=== PATIENT | male | born 1945 | race Caucasian/White ===

== ENCOUNTER 2016-06-29 07:24 | Emergency (ER) | payer OTHER, MEDICARE ==
[2016-06-29] MEDS ORDERED: NORCO, ANEXSIA 5/325MG TABLET (HYDROcodone/ACETAMINOPHEN) As Ordered ONE (07:52)
--- NOTE | 2016-06-29 08:26 | REP ---
Clinical: Pain. Trauma. Technique: Internal rotation, external rotation, and Y view of the right shoulder. Findings: Mild arthritic degenerative changes include spurring/osteophyte formation at the acromioclavicular joint as well as subtle blunting to the glenoid rim. There is no evidence for acute fracture or dislocation. Subacromial space is normal. No periarticular calcifications are identified. Impression: Mild arthritic degenerative changes. Signed by Tab Perdomo MD 06/29/2016 08:17 A
--- NOTE | 2016-06-29 08:33 | EDDOCDS ---
Nurse's Notes [facility] Name: Alli Ferrara Age: 71 yrs Sex: Male : 1945 Arrival Date: 06/29/2016 Time: 07:24 Bed I4 / M4 Private MD: Kalin Rios Diagnosis: Strain of muscle(s) and tendon(s) of the rotator cuff of right shoulder Presentation: 06/29 07:30 Presenting complaint: Patient states: Injured right shoulder lifting yesterday at work. mlb1 Adult Sepsis Screening: The patient does not have new or worsening altered mentation. Patient's respiratory rate is less than 22. Systolic blood pressure is greater than 100. Patient has a qSOFA score of 0- Negative Sepsis Screen. Suicide/Homicide risk assessment- the patient denies having any suicidal and/or homicidal ideations and does not present with any other emotional, behavioral or mental health complaints. 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 Transition of care: patient was not received from another setting of care. 07:30 Acuity: ROSENDO Level 4 mlb1 07:30 Method Of Arrival: Walkin/Carried/Asstd mlb1 Triage Assessment: 07:34 General: Appears uncomfortable, Behavior is appropriate for age, cooperative. Pain: mlb1 Location: right shoulder Pain currently is 11 out of 10 on a pain scale. Musculoskeletal: Range of motion limited in right shoulder. Historical: - Allergies: no known allergies; - Home Meds: 1. atorvastatin 40 mg oral tab 1 tab once daily 2. carvedilol 6.25 mg oral tab 1 tab every 12 hours 3. aspirin 81 mg Oral tab 1 tab once daily - PMHx: Myocardial infarction; High Cholesterol; - PSHx: back surgery; Stents, Coronary; - Social history: Smoking status: Patient uses tobacco products, light tobacco smoker. No barriers to communication noted, The patient speaks fluent Nauruan, Speaks appropriately for age. - Family history: Not pertinent. - : The pt / caregiver states he / she is not on anticoagulants. Home medication list is obtained from the patient. - Exposure Risk Screening:: None identified. Screenin:38 Screening information is obtained from the patient. Fall risk: No risks identified. jmk Assistance ADL's: requires no assistance with activities of daily living. Abuse/DV Screen: The patient / caregiver reports he/she is: not in a situation that causes fear, pain or injury. Nutritional screening: No deficits noted. Advance Directives: Currently, there is. home support is adequate. Assessment: 07:38 General: Appears in no apparent distress, pain with palpation and movement to right [facility] shoulder. painful ROM. pulse intact.. Pain: Location: right trapezius and right scapular area. 08:30 General: Appears arm sling applied with relief. VESSEL BUILDER remains less than 2 sec.. [facility] Vital Signs: 07:34 BP 166 / 104; Pulse 82; Resp 16; Temp 97.2(TE); Pulse Ox 98% on R/A; Weight 61.23 kg mlb1 (R); Height 5 ft. 11 in. (180.34 cm) (R); Pain 10/10; 08:30 BP 155 / 87; Pulse 82; Resp 16; Temp 98.3; jmk 07:34 Body Mass Index 18.83 (61.23 kg, 180.34 cm) [facility] Vitals: 07:34 Log In Time: June 29, 2016 at 07:24. [facility] ED Course: 07:26 Patient visited by Alli Monge Reg. pm4 07:26 Kalin Rios is Private Physician. pm4 07:26 Patient moved to Waiting pm4 07:30 Patient visited by Marcelo Mejia, ROSA. mlb1 07:31 Triage Initiated mlb1 07:35 Patient visited by Marcelo Mejia, ROSA. mlb1 07:35 Patient moved to I4 / M4 mlb1 07:38 The patient / caregiver is instructed regarding the plan of care and ED course. jmk 07:41 Jamie Perez PA-C is PHCP. cc10 07:41 Brian Stephens MD is Attending Physician. cc10 07:41 Patient visited by Jamie Perez PA-C. cc10 07:41 Patient visited by Jamie Perez PA-C. cc10 08:23 [facility] is Referral Physician. cc10 08:32 No IV's were initiated during this patient's visit. No procedures done that require [facility] assistance. Administered Medications: 07:54 Drug: HYDROcodone-acetaminophen 1 tabs [hydrocodone 5 mg-acetaminophen 325 mg tablet (1 jmk tabs)] Route: PO; 07:55 Follow up: Response: Confirmed pt not driving. k Order Results: There are currently no results for this order. Outcome: 08:23 Discharge ordered by Provider. cc10 08:31 Discharge Assessment: Patient awake, alert and oriented x 3. No cognitive and/or jmk functional deficits noted. Patient verbalized understanding of disposition instructions. patient administered narcotics - no. The following High Risk Discharge criteria are identified: None. Discharged to home ambulatory. Condition: good. Discharge instructions given to patient, Instructed on discharge instructions, follow up and referral plans. medication usage, Demonstrated understanding of instructions, medications, Pt was receptive of discharge instructions/ teaching. No special radiology studies were completed. Property :Personal belongings accompany Pt. 08:32 Patient left the ED. [facility] Signatures: Hermilo MaryRN RN Marcelo Katz RN RN mlJamie Newman, PA-C PA-C cc10 Alli Monge, Reg Reg pm4 AMELIE
--- NOTE | 2016-06-29 08:33 | EDDOCDS ---
Physician Documentation [facility] Name: Alli Ferrara Age: 71 yrs Sex: Male : 1945 Arrival Date: 06/29/2016 Time: 07:24 Bed I4 / M4 Private MD: Kalin Rios Disposition: 06/29/16 08:23 Discharged to Home/Self Care. Impression: Strain of muscle(s) and tendon(s) of the rotator cuff of right shoulder. - Condition is Stable. - Discharge Instructions: Rotator Cuff Injury. - Prescriptions for Hydrocodone- Acetaminophen 5-325 mg Oral Tablet - take 1 tablet by ORAL route every 6 hours As needed MDD: 4 tabs; 15 tablet. - Medication Reconciliation, Work Release Form - 3 day form. - Follow up: Emergency Department; When: As needed. Follow up: [facility]; When: Call to arrange an appointment; Reason: Wound/Symptom Recheck, Recheck today's complaints, Worsening of conditions, Continuance of care. - Problem is new. - Symptoms have improved. Historical: - Allergies: no known allergies; - Home Meds: 1. atorvastatin 40 mg oral tab 1 tab once daily 2. carvedilol 6.25 mg oral tab 1 tab every 12 hours 3. aspirin 81 mg Oral tab 1 tab once daily - PMHx: Myocardial infarction; High Cholesterol; - PSHx: back surgery; Stents, Coronary; - Social history: Smoking status: Patient uses tobacco products, light tobacco smoker. No barriers to communication noted, The patient speaks fluent Yi, Speaks appropriately for age. - Family history: Not pertinent. - : The pt / caregiver states he / she is not on anticoagulants. Home medication list is obtained from the patient. - Exposure Risk Screening:: None identified. Vital Signs: 06/29 07:34 BP 166 / 104; Pulse 82; Resp 16; Temp 97.2(TE); Pulse Ox 98% on R/A; Weight 61.23 kg / mlb1 134.99 lbs (R); Height 5 ft. 11 in. (180.34 cm) (R); Pain 10/10; 08:30 BP 155 / 87; Pulse 82; Resp 16; Temp 98.3; jmk 07:34 Body Mass Index 18.83 (61.23 kg, 180.34 cm) mlb1 MDM: 07:47 HYDROcodone-acetaminophen 5 mg-325 mg 1 tabs PO once ordered. cc10 07:47 Sling ordered. cc10 07:48 Shoulder, Complete Ordered. EDMS 07:57 Financial registration complete. lg Administered Medications: 07:54 Drug: HYDROcodone-acetaminophen 1 tabs [hydrocodone 5 mg-acetaminophen 325 mg tablet (1 jmk tabs)] Route: PO; 07:55 Follow up: Response: Confirmed pt not driving. giorgi Signatures: Dispatcher [employer] EDMS Hermilo Mary,RN RN Patel Moore, Reg Reg lg Marcelo Mejia RN RN mlb1 Jamie Perez, PA-C PA-C cc10 MTDD
--- NOTE | 2016-07-01 09:34 | EDDOCDS ---
Physician Documentation [facility] Name: Alli Ferrara Age: 71 yrs Sex: Male : 1945 Arrival Date: 06/29/2016 Time: 07:24 Bed I4 / M4 Private MD: Kalin Rios Disposition: 06/29/16 08:23 Discharged to Home/Self Care. Impression: Strain of muscle(s) and tendon(s) of the rotator cuff of right shoulder. - Condition is Stable. - Discharge Instructions: Rotator Cuff Injury. - Prescriptions for Hydrocodone- Acetaminophen 5-325 mg Oral Tablet - take 1 tablet by ORAL route every 6 hours As needed MDD: 4 tabs; 15 tablet. - Medication Reconciliation, Work Release Form - 3 day form. - Follow up: Emergency Department; When: As needed. Follow up: [facility]; When: Call to arrange an appointment; Reason: Wound/Symptom Recheck, Recheck today's complaints, Worsening of conditions, Continuance of care. - Problem is new. - Symptoms have improved. Historical: - Allergies: no known allergies; - Home Meds: 1. atorvastatin 40 mg oral tab 1 tab once daily 2. carvedilol 6.25 mg oral tab 1 tab every 12 hours 3. aspirin 81 mg Oral tab 1 tab once daily - PMHx: Myocardial infarction; High Cholesterol; - PSHx: back surgery; Stents, Coronary; - Social history: Smoking status: Patient uses tobacco products, light tobacco smoker. No barriers to communication noted, The patient speaks fluent Polish, Speaks appropriately for age. - Family history: Not pertinent. - : The pt / caregiver states he / she is not on anticoagulants. Home medication list is obtained from the patient. - Exposure Risk Screening:: None identified. Vital Signs: 06/29 07:34 BP 166 / 104; Pulse 82; Resp 16; Temp 97.2(TE); Pulse Ox 98% on R/A; Weight 61.23 kg / mlb1 134.99 lbs (R); Height 5 ft. 11 in. (180.34 cm) (R); Pain 10/10; 08:30 BP 155 / 87; Pulse 82; Resp 16; Temp 98.3; jmk 07:34 Body Mass Index 18.83 (61.23 kg, 180.34 cm) mlb1 MDM: 07:47 HYDROcodone-acetaminophen 5 mg-325 mg 1 tabs PO once ordered. cc10 07:47 Sling ordered. cc10 07:48 Shoulder, Complete Ordered. EDMS 07:57 Financial registration complete. lg 09:28 [facility] Payment Agreement was scanned into [employer] and attached to record. lg 12:58 T-Sheet-- Draft Copy was scanned into [employer] and attached to record. klr Administered Medications: 07:54 Drug: HYDROcodone-acetaminophen 1 tabs [hydrocodone 5 mg-acetaminophen 325 mg tablet (1 jmk tabs)] Route: PO; 07:55 Follow up: Response: Confirmed pt not driving. giorgi Signatures: Dispatcher [employer] EDMS Hermilo Mary,RN RN Patel Moore, Marcelo Sam lg RN RN mlb1 Jamie Perez, PA-C PA-C ccElvira Riley klrama The chart was reviewed and I authenticate all verbal orders and agree with the evaluation and treatment provided.Attachments: 09:28 [facility] Payment Agreement lg 12:58 T-Sheet-- Draft Copy klr Chart Complete MTDD
--- NOTE | 2016-07-01 09:34 | EDDOCDS ---
Nurse's Notes [facility] Name: Alli Ferrara Age: 71 yrs Sex: Male : 1945 Arrival Date: 06/29/2016 Time: 07:24 Bed I4 / M4 Private MD: Kalin Rios Diagnosis: Strain of muscle(s) and tendon(s) of the rotator cuff of right shoulder Presentation: 06/29 07:30 Presenting complaint: Patient states: Injured right shoulder lifting yesterday at work. mlb1 Adult Sepsis Screening: The patient does not have new or worsening altered mentation. Patient's respiratory rate is less than 22. Systolic blood pressure is greater than 100. Patient has a qSOFA score of 0- Negative Sepsis Screen. Suicide/Homicide risk assessment- the patient denies having any suicidal and/or homicidal ideations and does not present with any other emotional, behavioral or mental health complaints. 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 Transition of care: patient was not received from another setting of care. 07:30 Acuity: ROSENDO Level 4 mlb1 07:30 Method Of Arrival: Walkin/Carried/Asstd mlb1 Triage Assessment: 07:34 General: Appears uncomfortable, Behavior is appropriate for age, cooperative. Pain: mlb1 Location: right shoulder Pain currently is 11 out of 10 on a pain scale. Musculoskeletal: Range of motion limited in right shoulder. Historical: - Allergies: no known allergies; - Home Meds: 1. atorvastatin 40 mg oral tab 1 tab once daily 2. carvedilol 6.25 mg oral tab 1 tab every 12 hours 3. aspirin 81 mg Oral tab 1 tab once daily - PMHx: Myocardial infarction; High Cholesterol; - PSHx: back surgery; Stents, Coronary; - Social history: Smoking status: Patient uses tobacco products, light tobacco smoker. No barriers to communication noted, The patient speaks fluent Indonesian, Speaks appropriately for age. - Family history: Not pertinent. - : The pt / caregiver states he / she is not on anticoagulants. Home medication list is obtained from the patient. - Exposure Risk Screening:: None identified. Screenin:38 Screening information is obtained from the patient. Fall risk: No risks identified. jmk Assistance ADL's: requires no assistance with activities of daily living. Abuse/DV Screen: The patient / caregiver reports he/she is: not in a situation that causes fear, pain or injury. Nutritional screening: No deficits noted. Advance Directives: Currently, there is. home support is adequate. Assessment: 07:38 General: Appears in no apparent distress, pain with palpation and movement to right k shoulder. painful ROM. pulse intact.. Pain: Location: right trapezius and right scapular area. 08:30 General: Appears arm sling applied with relief. CLINICAL CARE LEADER remains less than 2 sec.. [facility] Vital Signs: 07:34 BP 166 / 104; Pulse 82; Resp 16; Temp 97.2(TE); Pulse Ox 98% on R/A; Weight 61.23 kg mlb1 (R); Height 5 ft. 11 in. (180.34 cm) (R); Pain 10/10; 08:30 BP 155 / 87; Pulse 82; Resp 16; Temp 98.3; jmk 07:34 Body Mass Index 18.83 (61.23 kg, 180.34 cm) [facility] Vitals: 07:34 Log In Time: June 29, 2016 at 07:24. [facility] ED Course: 07:26 Patient visited by Alli Monge Reg. pm4 07:26 Kalin Rios is Private Physician. pm4 07:26 Patient moved to Waiting pm4 07:30 Patient visited by Marcelo Mejia, ROSA. mlb1 07:31 Triage Initiated mlb1 07:35 Patient visited by Marcelo Mejia, ROSA. mlb1 07:35 Patient moved to I4 / M4 mlb1 07:38 The patient / caregiver is instructed regarding the plan of care and ED course. jmk 07:41 Jamie Perez PA-C is PHCP. cc10 07:41 Brian Stephens MD is Attending Physician. cc10 07:41 Patient visited by Jamie Perez PA-C. cc10 07:41 Patient visited by Jamie Perez PA-C. cc10 08:23 [facility] is Referral Physician. cc10 08:32 No IV's were initiated during this patient's visit. No procedures done that require [facility] assistance. 08:55 Shoulder, Complete Returned. EDMS 09:28 [facility] [place] was scanned into [employer] and attached to record. lg 12:58 T-Sheet-- Draft Copy was scanned into [employer] and attached to record. klr Administered Medications: 07:54 Drug: HYDROcodone-acetaminophen 1 tabs [hydrocodone 5 mg-acetaminophen 325 mg tablet (1 jmk tabs)] Route: PO; 07:55 Follow up: Response: Confirmed pt not driving. k Order Results: Radiology Order: Shoulder, Complete Test: Shoulder, Complete REASON FOR EXAMINATION: Trauma; Clinical: Pain. Trauma.; ; Technique: Internal rotation, external rotation, and Y view of the right; shoulder.; ; Findings:; Mild arthritic degenerative changes include spurring/osteophyte formation at the; acromioclavicular joint as well as subtle blunting to the glenoid rim. There is; no evidence for acute fracture or dislocation. Subacromial space is normal. No; periarticular calcifications are identified.; ; Impression:; Mild arthritic degenerative changes.; ; ; Signed by; Tab Perdomo MD 06/29/2016 08:17 A; Outcome: 08:23 Discharge ordered by Provider. cc10 08:31 Discharge Assessment: Patient awake, alert and oriented x 3. No cognitive and/or k functional deficits noted. Patient verbalized understanding of disposition instructions. patient administered narcotics - no. The following High Risk Discharge criteria are identified: None. Discharged to home ambulatory. Condition: good. Discharge instructions given to patient, Instructed on discharge instructions, follow up and referral plans. medication usage, Demonstrated understanding of instructions, medications, Pt was receptive of discharge instructions/ teaching. No special radiology studies were completed. Property :Personal belongings accompany Pt. 08:32 Patient left the ED. sophia Signatures: [facility] Hermilo Mary,RN Patel Lora, Reg Reg lg Marcelo Mejia RN RN mlJamie Newman, PA-C PA-C cc10 Elvira Leonardo Paul, Reg Reg pm4 Chart Complete MTDD
--- NOTE | 2016-07-01 09:34 | EDDOCDS ---
Physician Documentation [facility] Name: Alli Ferrara Age: 71 yrs Sex: Male : 1945 Arrival Date: 06/29/2016 Time: 07:24 Bed I4 / M4 Private MD: Kalin Rios Disposition: 06/29/16 08:23 Discharged to Home/Self Care. Impression: Strain of muscle(s) and tendon(s) of the rotator cuff of right shoulder. - Condition is Stable. - Discharge Instructions: Rotator Cuff Injury. - Prescriptions for Hydrocodone- Acetaminophen 5-325 mg Oral Tablet - take 1 tablet by ORAL route every 6 hours As needed MDD: 4 tabs; 15 tablet. - Medication Reconciliation, Work Release Form - 3 day form. - Follow up: Emergency Department; When: As needed. Follow up: [facility]; When: Call to arrange an appointment; Reason: Wound/Symptom Recheck, Recheck today's complaints, Worsening of conditions, Continuance of care. - Problem is new. - Symptoms have improved. Historical: - Allergies: no known allergies; - Home Meds: 1. atorvastatin 40 mg oral tab 1 tab once daily 2. carvedilol 6.25 mg oral tab 1 tab every 12 hours 3. aspirin 81 mg Oral tab 1 tab once daily - PMHx: Myocardial infarction; High Cholesterol; - PSHx: back surgery; Stents, Coronary; - Social history: Smoking status: Patient uses tobacco products, light tobacco smoker. No barriers to communication noted, The patient speaks fluent Romansh, Speaks appropriately for age. - Family history: Not pertinent. - : The pt / caregiver states he / she is not on anticoagulants. Home medication list is obtained from the patient. - Exposure Risk Screening:: None identified. Vital Signs: 06/29 07:34 BP 166 / 104; Pulse 82; Resp 16; Temp 97.2(TE); Pulse Ox 98% on R/A; Weight 61.23 kg / mlb1 134.99 lbs (R); Height 5 ft. 11 in. (180.34 cm) (R); Pain 10/10; 08:30 BP 155 / 87; Pulse 82; Resp 16; Temp 98.3; jmk 07:34 Body Mass Index 18.83 (61.23 kg, 180.34 cm) mlb1 MDM: 07:47 HYDROcodone-acetaminophen 5 mg-325 mg 1 tabs PO once ordered. cc10 07:47 Sling ordered. cc10 07:48 Shoulder, Complete Ordered. EDMS 07:57 Financial registration complete. lg 09:28 [facility] Payment Agreement was scanned into [employer] and attached to record. lg 12:58 T-Sheet-- Draft Copy was scanned into [employer] and attached to record. klr Administered Medications: 07:54 Drug: HYDROcodone-acetaminophen 1 tabs [hydrocodone 5 mg-acetaminophen 325 mg tablet (1 jmk tabs)] Route: PO; 07:55 Follow up: Response: Confirmed pt not driving. giorgi Signatures: Dispatcher [employer] EDMS Hermilo Mary,RN RN Patel Moore, Marcelo aSm lg RN RN mlb1 Jamie Perez, PA-C PA-C ccElvira Riley klrama The chart was reviewed and I authenticate all verbal orders and agree with the evaluation and treatment provided.Attachments: 09:28 [facility] Payment Agreement lg 12:58 T-Sheet-- Draft Copy klr Chart Complete MTDD
== END 2016-06-29 08:32 | disposition home or self-care (01) ==
LOC: M ED 07:24
DX: S43.421A Sprain of right rotator cuff capsule, initial encounter (principal); X50.9XXA Other and unspecified overexertion or strenuous movements or postures, initial encounter; Y99.0 Civilian activity done for income or pay; Y92.9 Unspecified place or not applicable; Y93.89 Activity, other specified; I25.2 Old myocardial infarction; E78.00 Pure hypercholesterolemia, unspecified; Z95.5 Presence of coronary angioplasty implant and graft; Z72.0 Tobacco use; Z79.82 Long term (current) use of aspirin; Z79.899 Other long term (current) drug therapy

== ENCOUNTER 2016-10-09 07:18 | Emergency (ER) | payer MEDICARE, OTHER ==
[~2016-10-09] VITALS: Ht 180.3 cm; Wt 60.8 kg
[2016-10-09] MEDS ORDERED: TRAM50TA2 PO (07:30)
[2016-10-09] MEDS ORDERED: CARV6.25 PO (07:30)
[2016-10-09] MEDS ORDERED: ASPI1TAB PO (07:30)
[2016-10-09] MEDS ORDERED: ATOR40TA PO (07:30)
[2016-10-09] MEDS ORDERED: NORCO, ANEXSIA 5/325MG TABLET (HYDROcodone/ACETAMINOPHEN) PO ONE (08:00)
--- NOTE | 2016-10-09 08:14 | REP ---
Clinical: Trauma. Technique: Frontal view of the chest with multiple views of the left hemithorax. Findings: Frontal view of the chest demonstrates COPD/emphysematous changes without obvious acute cardiopulmonary process. Multiple views of the left hemithorax demonstrates no obvious acute rib fracture or pathology. Impression: Normal left rib series COPD/emphysema. Signed by Tab Perdomo MD 10/09/2016 08:06 A
[2016-10-09] MEDS ORDERED: NAPR500T PO (08:21)
[2016-10-09 08:34] VITALS: BP 156/92
== END 2016-10-09 08:35 | disposition home or self-care (01) ==
LOC: EDBD 07:18 → M ED 08:11
DX: S20.212A Contusion of left front wall of thorax, initial encounter (principal); F17.210 Nicotine dependence, cigarettes, uncomplicated; W01.198A Fall on same level from slipping, tripping and stumbling with subsequent striking against other object, initial encounter; Y92.099 Unspecified place in other non-institutional residence as the place of occurrence of the external cause; Y93.01 Activity, walking, marching and hiking; Y99.9 Unspecified external cause status

== ENCOUNTER → 2016-12-20 | Outpatient (REF) | payer MEDICARE ==
[~2016-12-20] MED LIST: ASPI1TAB PO; ATOR40TA75 PO; CARV6.25 PO; NAPR500T PO; TRAM50TA2 PO
[2016-12-20 15:13] LABS: ALBUMIN/GLOBULIN RATIO 1.11 (1.00-1.93); ALKALINE PHOSPHATASE 83 U/L (45-117); ALT/SGPT 20 U/L (12-78); ANION GAP 8 MEQ/L (8-16); AST/SGOT 12 U/L (15-37); BILIRUBIN,TOTAL 0.4 MG/DL (0.2-1.0); BLOOD UREA NITROGEN 16 MG/DL (7-18); CALCIUM LEVEL 9.1 MG/DL (8.8-10.2); CARBON DIOXIDE LEVEL 24 MEQ/L (21-32); CHLORIDE LEVEL 107 MEQ/L (98-107); CHOLESTEROL LEVEL 146 MG/DL (<200); CREATININE FOR GFR 1.03 MG/DL (0.70-1.30); GLOMERULAR FILTRATION RATE > 60.0 (>42); GLUCOSE, FASTING 88 MG/DL (83-110); POTASSIUM SERUM 4.2 MEQ/L (3.5-5.1); SODIUM LEVEL 139 MEQ/L (136-145); TOTAL PROTEIN 7.6 GM/DL (6.4-8.2); TRIGLYCERIDES LEVEL 101 MG/DL (<150)
== END ==
LOC: M LAB REF 13:28
PROVIDERS: ATTEND Family Medicine Addiction Medicine
DX: I25.118 Atherosclerotic heart disease of native coronary artery with other forms of angina pectoris (principal)

== ENCOUNTER → 2017-07-18 | Outpatient (CLI) | payer MEDICARE, MEDICAID | LOC: M RAD 07:53 | DX: M79.605 Pain in left leg (principal); M25.552 Pain in left hip; M25.562 Pain in left knee | CPT/HCPCS: 73564 ==

== ENCOUNTER 2018-02-15 06:50 | Day surgery (SDC) | payer MEDICARE, MEDICAID ==
[2018-02-15] MEDS ORDERED: PROPOFOL 200 MG/20 ML VIAL As Ordered ×2 (07:07)
[2018-02-15] MEDS ORDERED: LIDOCAINE 2% INJ 100 MG/5 ML SDV (FOR ANES.) As Ordered (07:08)
[2018-02-15] MEDS ORDERED: NS 1,000 ML IV (07:30)
== END 2018-02-15 09:30 | disposition home or self-care (01) ==
LOC: M OPP 06:50
DX: R19.5 Other fecal abnormalities (principal); D12.3 Benign neoplasm of transverse colon; D12.2 Benign neoplasm of ascending colon; D12.5 Benign neoplasm of sigmoid colon; K64.8 Other hemorrhoids; K57.30 Diverticulosis of large intestine without perforation or abscess without bleeding; Z95.5 Presence of coronary angioplasty implant and graft; I25.10 Atherosclerotic heart disease of native coronary artery without angina pectoris; I25.2 Old myocardial infarction; I10 Essential (primary) hypertension; E78.5 Hyperlipidemia, unspecified; F17.210 Nicotine dependence, cigarettes, uncomplicated; Z79.82 Long term (current) use of aspirin; Z79.899 Other long term (current) drug therapy
CPT/HCPCS: 45385

== ENCOUNTER → 2019-02-26 | Outpatient (REF) | payer MEDICARE, MEDICAID ==
[~2019-02-26] MED LIST changes: -ASPI1TAB PO; +ASPI81TA26 PO; +NAPR-837 PO; -NAPR500T PO
[2019-02-26 12:26] LABS: BASO % 0.3 % (0.0-1.0); EOS # 0.2 10^3/uL (0.0-0.5); EOS % 2.7 % (0.0-3.0); HEMATOCRIT 47.2 % (42.0-52.0); HEMOGLOBIN 15.6 g/dl (13.5-17.5); LYMPH # 2.4 10^3/uL (1.5-5.0); LYMPH % 32.7 % (24.0-44.0); MEAN CORPUSCULAR HEMOGLOBIN 31.3 pg (27.0-33.0); MEAN CORPUSCULAR HGB CONC 33.1 g/dl (32.0-36.5); MEAN CORPUSCULAR VOLUME 94.8 fl (80.0-96.0); MONO # 0.4 10^3/uL (0.0-0.8); MONO % 5.6 % (0.0-5.0); NEUTROPHILS # 4.4 10^3/uL (1.5-8.5); NEUTROPHILS % 58.4 % (36.0-66.0); PLATELET COUNT, AUTOMATED 258 10^3/uL (150-450); RED BLOOD COUNT 4.98 10^6/uL (4.30-6.10); WHITE BLOOD COUNT 7.4 10^3/uL (4.0-10.0)
[2019-02-26 12:41] LABS: ALBUMIN 3.8 GM/DL (3.2-5.2); ALT/SGPT 21 U/L (12-78); BILIRUBIN,TOTAL 0.5 MG/DL (0.2-1.0); BLOOD UREA NITROGEN 11 MG/DL (7-18); CALCIUM LEVEL 9.1 MG/DL (8.8-10.2); CARBON DIOXIDE LEVEL 26 MEQ/L (21-32); CHLORIDE LEVEL 110 MEQ/L (98-107); CHOLESTEROL LEVEL 151 MG/DL (<200); CREATININE FOR GFR 1.07 MG/DL (0.70-1.30); GLOMERULAR FILTRATION RATE > 60.0 (>42); GLUCOSE, FASTING 95 MG/DL (70-100); HDL CHOLESTEROL 51 MG/DL (>40); LDL CHOLESTEROL 77 MG/DL (<100); MAGNESIUM LEVEL 2.2 MG/DL (1.8-2.4); NON-HDL-C 100 MG/DL; POTASSIUM SERUM 4.3 MEQ/L (3.5-5.1); SODIUM LEVEL 141 MEQ/L (136-145); TOTAL PROTEIN 7.2 GM/DL (6.4-8.2); TRIGLYCERIDES LEVEL 117 MG/DL (<150)
[2019-02-26 12:51] LABS: HEMOGLOBIN A1c 5.7 %
== END ==
LOC: M LAB REF 11:57
PROVIDERS: ATTEND Nurse Practitioner Family
DX: Z00.01 Encounter for general adult medical examination with abnormal findings (principal); Z79.899 Other long term (current) drug therapy; Z79.82 Long term (current) use of aspirin

== ENCOUNTER → 2019-03-19 | Outpatient (REF) | payer MEDICARE, MEDICAID, OTHER ==
[2019-03-19 11:51] LABS: APPEARANCE, URINE CLEAR (CLEAR); BACTERIA, URINE AUTO NEGATIVE (NEGATIVE); BILIRUBIN, URINE AUTO NEGATIVE (NEGATIVE); BLOOD, URINE BLOOD 1+ (NEGATIVE); COLOR, URINE YELLOW (YELLOW); GLUCOSE, URINE (UA) AUTO NEGATIVE (NEGATIVE); KETONE, URINE AUTO NEGATIVE (NEGATIVE); LEUKOCYTE ESTERASE, URINE AUTO TRACE (NEGATIVE); MUCUS, URINE SMALL (NEGATIVE); NITRITE, URINE AUTO NEGATIVE (NEGATIVE); PROTEIN, URINE AUTO NEGATIVE (NEGATIVE); RBC, URINE AUTO 1 /HPF (0-3); SPECIFIC GRAVITY URINE AUTO 1.008 (1.002-1.035); SQUAMOUS EPITHELIAL CELL UR AU 0 /HPF (0-6); UROBILINOGEN, URINE AUTO 0.2 mg/dL (0.0-2.0); WBC, URINE AUTO 2 /HPF (0-3)
== END ==
LOC: M SMT 11:21
PROVIDERS: ATTEND Nurse Practitioner Family
DX: N53.19 Other ejaculatory dysfunction (principal)

== ENCOUNTER → 2021-08-13 | Outpatient (CLI) | payer MEDICARE, MEDICAID | LOC: M RAD 06:41 | PROVIDERS: ATTEND Family Medicine Addiction Medicine | DX: J43.9 Emphysema, unspecified (principal); R91.8 Other nonspecific abnormal finding of lung field; Z87.891 Personal history of nicotine dependence ==

== ENCOUNTER → 2021-10-18 | Outpatient (CLI) | payer MEDICARE, MEDICAID ==
[~2021-10-18] MED LIST changes: +CARV12.5 PO; +EZET10TA21 PO
== END ==
LOC: M LABSMTC 09:34
PROVIDERS: ATTEND Anesthesiology
DX: Z01.812 Encounter for preprocedural laboratory examination (principal); Z20.822 Contact with and (suspected) exposure to COVID-19

== ENCOUNTER 2021-10-22 07:39 | Day surgery (SDC) | payer MEDICARE, MEDICAID ==
[~2021-10-22] VITALS: Ht 180.3 cm; Wt 57.6 kg
[2021-10-22] MEDS ORDERED: NS 1,000 ML IV ONE (09:05)
[2021-10-22] MEDS ORDERED: LIDOCAINE 2% 100MG/5ML SDV (FOR ANES.) As Ordered ONE (09:44)
[2021-10-22] MEDS ORDERED: propofoL 200 MG/20 ML VIAL As Ordered ONE (09:44)
[2021-10-22 10:32] VITALS: BP 107/60
== END 2021-10-22 10:50 | disposition home or self-care (01) ==
LOC: M OPP 07:39
PROVIDERS: ATTEND Internal Medicine Gastroenterology
DX: Z12.11 Encounter for screening for malignant neoplasm of colon (principal); Z86.010 Personal history of colon polyps; D12.3 Benign neoplasm of transverse colon; K57.30 Diverticulosis of large intestine without perforation or abscess without bleeding; K64.8 Other hemorrhoids; Z79.02 Long term (current) use of antithrombotics/antiplatelets; Z79.82 Long term (current) use of aspirin; Z79.899 Other long term (current) drug therapy; Z95.5 Presence of coronary angioplasty implant and graft; Z86.74 Personal history of sudden cardiac arrest; F17.210 Nicotine dependence, cigarettes, uncomplicated

== ENCOUNTER 2022-02-03 06:45 | Emergency (ER) | payer MEDICARE, MEDICAID ==
[~2022-02-03] VITALS: Ht 180.3 cm; Wt 61.4 kg
[2022-02-03] MEDS ORDERED: NS 1,000 ML IV ONE (07:30)
[2022-02-03 07:32] LABS: BASO % 0.4 % (0.0-1.0); EOS # 0.3 10^3/uL (0.0-0.5); EOS % 3.5 % (0.0-3.0); HEMATOCRIT 43.5 % (42.0-52.0); HEMOGLOBIN 14.6 g/dl (13.5-17.5); LYMPH # 2.8 10^3/uL (1.5-5.0); LYMPH % 33.6 % (24.0-44.0); MEAN CORPUSCULAR HEMOGLOBIN 30.9 pg (27.0-33.0); MEAN CORPUSCULAR HGB CONC 33.6 g/dl (32.0-36.5); MONO # 0.6 10^3/uL (0.0-0.8); MONO % 6.6 % (2.0-8.0); NEUTROPHILS # 4.7 10^3/uL (1.5-8.5); NEUTROPHILS % 55.7 % (36.0-66.0); PLATELET COUNT, AUTOMATED 257 10^3/uL (150-450); RED BLOOD COUNT 4.73 10^6/uL (4.30-6.10); WHITE BLOOD COUNT 8.4 10^3/uL (4.0-10.0)
[2022-02-03 07:42] LABS: INR 0.94; PARTIAL THROMBOPLASTIN TIME 26.6 SECONDS (25.9-37.0)
[2022-02-03 08:02] LABS: CK-MB VALUE MASS 1.2 NG/ML (<3.6); MB/CK RELATIVE INDEX 1.6 (< OR =4)
[2022-02-03 08:09] LABS: BLOOD UREA NITROGEN 16 MG/DL (7-18); CALCIUM LEVEL 8.8 MG/DL (8.8-10.2); CARBON DIOXIDE LEVEL 23 MEQ/L (21-32); CHLORIDE LEVEL 107 MEQ/L (98-107); CREATININE FOR GFR 1.12 MG/DL (0.70-1.30); FREE T4 1.05 NG/DL (0.76-1.46); GLOMERULAR FILTRATION RATE > 60.0 (>42); GLUCOSE, FASTING 123 MG/DL (70-100); MAGNESIUM LEVEL 2.3 MG/DL (1.8-2.4); POTASSIUM SERUM 4.2 MEQ/L (3.5-5.1); SODIUM LEVEL 136 MEQ/L (136-145)
[2022-02-03 08:58] LABS: CK-MB VALUE MASS 1.2 NG/ML (<3.6)
[2022-02-03] MEDS ORDERED: BOOSTRIX/ADACEL VACCINE (DIPHTH/PERTUSS/ACELL/TETANUS) 0.5ML SYR IM.IMMUN ONE (10:05)
[2022-02-03 11:12] LABS: CK-MB VALUE MASS 1.7 NG/ML (<3.6); MB/CK RELATIVE INDEX 2.58 (< OR =4)
[2022-02-03 11:15] VITALS: BP 142/84
== END 2022-02-03 11:35 | disposition left against medical advice (07) ==
LOC: M ED 06:45
DX: R55 Syncope and collapse (principal); S09.90XA Unspecified injury of head, initial encounter; Z53.9 Procedure and treatment not carried out, unspecified reason; I25.10 Atherosclerotic heart disease of native coronary artery without angina pectoris; I25.2 Old myocardial infarction; Z95.5 Presence of coronary angioplasty implant and graft; F17.200 Nicotine dependence, unspecified, uncomplicated; Z79.82 Long term (current) use of aspirin; Z79.899 Other long term (current) drug therapy

== ENCOUNTER → 2024-01-09 | Outpatient (REF) | payer MEDICARE, MEDICAID ==
[2024-01-09 12:55] LABS: BASO % 0.3 % (0.0-1.0); EOS # 0.1 10^3/uL (0.0-0.5); EOS % 1.2 % (0.0-3.0); HEMATOCRIT 47.1 % (42.0-52.0); HEMOGLOBIN 15.6 g/dl (13.5-17.5); LYMPH # 1.9 10^3/uL (1.5-5.0); LYMPH % 17.9 % (24.0-44.0); MEAN CORPUSCULAR HEMOGLOBIN 31.1 pg (27.0-33.0); MEAN CORPUSCULAR HGB CONC 33.1 g/dl (32.0-36.5); MEAN CORPUSCULAR VOLUME 93.8 fl (80.0-96.0); MONO # 0.5 10^3/uL (0.0-0.8); MONO % 4.5 % (2.0-8.0); NEUTROPHILS % 75.7 % (36.0-66.0); PLATELET COUNT, AUTOMATED 389 10^3/uL (150-450); RED BLOOD COUNT 5.02 10^6/uL (4.30-6.10); WHITE BLOOD COUNT 10.6 10^3/uL (4.0-10.0)
[2024-01-09 13:10] LABS: HEMOGLOBIN A1c 5.5 % (4.0-6.0)
[2024-01-09 13:27] LABS: THYROID STIMULATING HORMONE 1.207 uIU/ML (0.55-4.78)
[2024-01-09 13:28] LABS: FREE T4 1.21 NG/DL (0.89-1.76); VITAMIN B12 LEVEL 504 PG/ML (211-911)
[2024-01-09 13:31] LABS: ALKALINE PHOSPHATASE 99 U/L (46-116); ALT/SGPT 13 U/L (7.0-40); AST/SGOT 16 U/L (<34); BILIRUBIN,TOTAL 0.3 MG/DL (0.3-1.2); BLOOD UREA NITROGEN 23 MG/DL (9-23); CALCIUM LEVEL 9.6 MG/DL (8.3-10.6); CARBON DIOXIDE LEVEL 24 MMOL/L (20-31); CHLORIDE LEVEL 109 MMOL/L (98-107); CREATININE FOR GFR 1.16 MG/DL (0.70-1.30); GLOMERULAR FILTRATION RATE > 60.0 (>42); GLUCOSE, FASTING 108 MG/DL (74-106); POTASSIUM SERUM 4.6 MMOL/L (3.5-5.1); SODIUM LEVEL 139 MMOL/L (136-145); TOTAL PROTEIN 7.4 G/DL (5.7-8.2)
== END ==
LOC: M LAB REF 11:42
PROVIDERS: ATTEND Family Medicine Addiction Medicine
DX: G62.9 Polyneuropathy, unspecified (principal); E07.9 Disorder of thyroid, unspecified

== ENCOUNTER 2024-03-16 03:31 | Inpatient (IN) | payer MEDICARE, MEDICAID ==
[~2024-03-16] VITALS: Ht 180.3 cm; Wt 59.1 kg
[2024-03-16 05:17] LABS: BASO % 0.2 % (0.0-1.0); EOS % 0.1 % (0.0-3.0); HEMATOCRIT 45.1 % (42.0-52.0); HEMOGLOBIN 15.4 g/dl (13.5-17.5); LYMPH # 1.8 10^3/uL (1.5-5.0); LYMPH % 17.2 % (24.0-44.0); MEAN CORPUSCULAR HEMOGLOBIN 31.1 pg (27.0-33.0); MEAN CORPUSCULAR HGB CONC 34.1 g/dl (32.0-36.5); MEAN CORPUSCULAR VOLUME 91.1 fl (80.0-96.0); MONO # 0.6 10^3/uL (0.0-0.8); MONO % 5.4 % (2.0-8.0); NEUTROPHILS # 7.9 10^3/uL (1.5-8.5); NEUTROPHILS % 76.9 % (36.0-66.0); PLATELET COUNT, AUTOMATED 297 10^3/uL (150-450); RED BLOOD COUNT 4.95 10^6/uL (4.30-6.10); WHITE BLOOD COUNT 10.3 10^3/uL (4.0-10.0)
[2024-03-16 05:37] LABS: ALBUMIN 3.4 G/DL (3.2-5.2); ALKALINE PHOSPHATASE 98 U/L (40-129); ALT/SGPT 24 U/L (7.0-40); AST/SGOT 62 U/L (<34); BILIRUBIN,DIRECT 0.2 MG/DL (<0.4); BILIRUBIN,TOTAL 0.7 MG/DL (0.3-1.2); CK-MB VALUE MASS 9.7 NG/ML (<3.6)
[2024-03-16 05:40] LABS: CPK CREATINE PHOSPHOKINASE 1070 U/L (46-171)
[2024-03-16 06:18] LABS: BLOOD UREA NITROGEN 23 MG/DL (9-23); CALCIUM LEVEL 9.4 MG/DL (8.3-10.6); CARBON DIOXIDE LEVEL 18 MMOL/L (20-31); CHLORIDE LEVEL 107 MMOL/L (98-107); CREATININE FOR GFR 0.95 MG/DL (0.70-1.30); GLOMERULAR FILTRATION RATE > 60.0 (>42); GLUCOSE, FASTING 110 MG/DL (74-106); POTASSIUM SERUM 4.7 MMOL/L (3.5-5.1); SODIUM LEVEL 137 MMOL/L (136-145)
[2024-03-16 07:13] LABS: CK-MB VALUE MASS 9.5 NG/ML (<3.6); MB/CK RELATIVE INDEX 0.9 (< OR =4)
[2024-03-16] MEDS: METOPROLOL TART 25 MG TABLET PO ONE (07:45)
[2024-03-16] MEDS ORDERED: ISOVUE-370 76% 100ML VIAL As Ordered ONE (08:09)
[2024-03-16 08:34] LABS: ALBUMIN 3.3 G/DL (3.2-5.2); BILIRUBIN,DIRECT 0.2 MG/DL (<0.4); BILIRUBIN,TOTAL 0.7 MG/DL (0.3-1.2); CHOLESTEROL RISK RATIO 5.02 (<5); HDL CHOLESTEROL 44.4 MG/DL (>40); LDL CHOLESTEROL 159.4 MG/DL (<100); NON-HDL-C 178.6 MG/DL; TOTAL PROTEIN 6.7 G/DL (5.7-8.2)
[2024-03-16] MEDS: NS 1,000 ML IV SCH (09:29)
[2024-03-16] MEDS: ASPIRIN 81MG CHEW TABLET PO ONE (09:29)
[2024-03-16] MEDS: ATORVASTATIN 20 MG TAB PO ONE (09:29)
[2024-03-16] MEDS ORDERED: HOME MED LIST COMPLETE! XX SCH (11:20)
[2024-03-16] MEDS: HEPARIN SOD (PORCINE) 5000UNITS/ML 1ML VIAL/SYRINGE SQ SCH (14:08)
[2024-03-16 14:43] LABS: HEMATOCRIT 43.7 % (42.0-52.0)
[2024-03-16 15:05] LABS: FOLATE > 24.00 NG/ML (>5.4); VITAMIN B12 LEVEL 590 PG/ML (211-911)
[2024-03-16 15:07] LABS: MB/CK RELATIVE INDEX 1.02 (< OR =4)
[2024-03-16 15:26] VITALS: BP 139/86; TEMP 97.7; O2SAT 95
[2024-03-16 16:51] LABS: PREALBUMIN 19.4 MG/DL (10.0-40.0)
[2024-03-16] MEDS: SENOKOT S TAB PO ONE (16:55)
[2024-03-16] MEDS: MAGNESIUM CITRATE 300ML BTL PO ONE (16:55)
[2024-03-16 17:23] LABS: BLOOD UREA NITROGEN 21 MG/DL (9-23); CALCIUM LEVEL 9.2 MG/DL (8.3-10.6); CARBON DIOXIDE LEVEL 25 MMOL/L (20-31); CHLORIDE LEVEL 107 MMOL/L (98-107); CREATININE FOR GFR 0.99 MG/DL (0.70-1.30); GLOMERULAR FILTRATION RATE > 60.0 (>42); GLUCOSE, FASTING 99 MG/DL (74-106); POTASSIUM SERUM 4.4 MMOL/L (3.5-5.1); SODIUM LEVEL 139 MMOL/L (136-145)
[2024-03-16 20:10] VITALS: BP 131/71; TEMP 97.3; O2SAT 97
[2024-03-16] MEDS: METOPROLOL TART 25 MG TABLET PO SCH (20:48)
[2024-03-16 22:08] LABS: CPK CREATINE PHOSPHOKINASE 721 U/L (46-171)
[2024-03-16 22:09] LABS: BLOOD UREA NITROGEN 22 MG/DL (9-23); CALCIUM LEVEL 8.9 MG/DL (8.3-10.6); CARBON DIOXIDE LEVEL 27 MMOL/L (20-31); CHLORIDE LEVEL 108 MMOL/L (98-107); CK-MB VALUE MASS 7.4 NG/ML (<3.6); CREATININE FOR GFR 0.96 MG/DL (0.70-1.30); GLOMERULAR FILTRATION RATE > 60.0 (>42); GLUCOSE, FASTING 102 MG/DL (74-106); MAGNESIUM LEVEL 2.3 MG/DL (1.8-2.4); MB/CK RELATIVE INDEX 1.02 (< OR =4); SODIUM LEVEL 139 MMOL/L (136-145)
[2024-03-17 04:00] VITALS: BP 141/75; TEMP 97.5; O2SAT 97
[2024-03-17 06:17] LABS: HEMATOCRIT 41.7 % (42.0-52.0); HEMOGLOBIN 13.8 g/dl (13.5-17.5); MEAN CORPUSCULAR HGB CONC 33.1 g/dl (32.0-36.5); MEAN CORPUSCULAR VOLUME 93.7 fl (80.0-96.0); PLATELET COUNT, AUTOMATED 269 10^3/uL (150-450); RED BLOOD COUNT 4.45 10^6/uL (4.30-6.10); WHITE BLOOD COUNT 7.7 10^3/uL (4.0-10.0)
[2024-03-17 06:44] LABS: CK-MB VALUE MASS 9.5 NG/ML (<3.6)
[2024-03-17 06:45] LABS: CPK CREATINE PHOSPHOKINASE 780 U/L (46-171)
[2024-03-17 06:48] LABS: MB/CK RELATIVE INDEX 1.21 (< OR =4)
[2024-03-17 06:55] LABS: BLOOD UREA NITROGEN 20 MG/DL (9-23); CALCIUM LEVEL 9.1 MG/DL (8.3-10.6); CARBON DIOXIDE LEVEL 24 MMOL/L (20-31); CHLORIDE LEVEL 110 MMOL/L (98-107); CREATININE FOR GFR 0.92 MG/DL (0.70-1.30); GLOMERULAR FILTRATION RATE > 60.0 (>42); GLUCOSE, FASTING 84 MG/DL (74-106); POTASSIUM SERUM 4.1 MMOL/L (3.5-5.1); SODIUM LEVEL 142 MMOL/L (136-145)
[2024-03-17] MEDS: ASPIRIN 81MG ENTERIC TABLET PO SCH (08:21)
[2024-03-17 12:00] VITALS: BP 125/72; TEMP 97.5; O2SAT 94
[2024-03-17 19:45] VITALS: BP 118/70; TEMP 97.5; O2SAT 95
[2024-03-17] MEDS: ATORVASTATIN 20 MG TAB PO SCH (20:25)
[2024-03-18 04:18] VITALS: BP 121/75; TEMP 97.9; O2SAT 97
[2024-03-18 06:32] LABS: HEMATOCRIT 40.9 % (42.0-52.0); HEMOGLOBIN 13.8 g/dl (13.5-17.5); MEAN CORPUSCULAR HEMOGLOBIN 30.9 pg (27.0-33.0); MEAN CORPUSCULAR HGB CONC 33.7 g/dl (32.0-36.5); MEAN CORPUSCULAR VOLUME 91.7 fl (80.0-96.0); PLATELET COUNT, AUTOMATED 276 10^3/uL (150-450); RED BLOOD COUNT 4.46 10^6/uL (4.30-6.10); WHITE BLOOD COUNT 7.2 10^3/uL (4.0-10.0)
[2024-03-18 07:03] LABS: BLOOD UREA NITROGEN 20 MG/DL (9-23); CARBON DIOXIDE LEVEL 22 MMOL/L (20-31); CHLORIDE LEVEL 107 MMOL/L (98-107); CPK CREATINE PHOSPHOKINASE 556 U/L (46-171); GLOMERULAR FILTRATION RATE > 60.0 (>42); GLUCOSE, FASTING 81 MG/DL (74-106); POTASSIUM SERUM 4.1 MMOL/L (3.5-5.1); SODIUM LEVEL 140 MMOL/L (136-145)
[2024-03-18] MEDS ORDERED: PERCOCET 5MG/325MG TAB PO PRN (08:40)
[2024-03-18] MEDS ORDERED: NALOXONE INJ 0.4MG/1ML VIAL IV PRN (08:40)
[2024-03-18] MEDS ORDERED: SENOKOT S TAB PO PRN (08:45)
[2024-03-18] MEDS: HYDROMORPHONE HCL 0.5 MG/ 0.5 ML SYRINGE IV ONE (08:49)
[2024-03-18] MEDS ORDERED: MORPHINE 10 MG/ML 1ML VIAL IV PRN (09:40)
[2024-03-18] MEDS: ACETAMINOPHEN *IV* 1,000 MG in IV 1 EA IV ONE (10:06)
[2024-03-18] MEDS: DICLOFENAC EPOLAMINE 1.3% PATCH TOP SCH (10:07)
[2024-03-18] MEDS: LIDOCAINE 5% (LIDODERM) PATCH TD SCH (10:07)
[2024-03-18 13:19] VITALS: BP 126/76; TEMP 97.9; O2SAT 98
[2024-03-18 20:00] VITALS: BP 131/78; TEMP 97.7; O2SAT 96
[2024-03-18] MEDS: PERCOCET 5MG/325MG TAB PO PRN (20:28)
[2024-03-18] MEDS ORDERED: guaiFENesin ER TABLET 600 MG TAB PO SCH (21:00)
[2024-03-19 04:00] VITALS: BP 134/88; TEMP 97.5; O2SAT 95
[2024-03-19 05:22] LABS: HEMATOCRIT 40.7 % (42.0-52.0); HEMOGLOBIN 13.9 g/dl (13.5-17.5); MEAN CORPUSCULAR HEMOGLOBIN 30.9 pg (27.0-33.0); MEAN CORPUSCULAR HGB CONC 34.2 g/dl (32.0-36.5); MEAN CORPUSCULAR VOLUME 90.4 fl (80.0-96.0); PLATELET COUNT, AUTOMATED 268 10^3/uL (150-450); WHITE BLOOD COUNT 6.3 10^3/uL (4.0-10.0)
[2024-03-19 05:40] LABS: BLOOD UREA NITROGEN 21 MG/DL (9-23); CALCIUM LEVEL 8.9 MG/DL (8.3-10.6); CARBON DIOXIDE LEVEL 22 MMOL/L (20-31); CHLORIDE LEVEL 107 MMOL/L (98-107); CREATININE FOR GFR 0.82 MG/DL (0.70-1.30); GLOMERULAR FILTRATION RATE > 60.0 (>42); GLUCOSE, FASTING 83 MG/DL (74-106); POTASSIUM SERUM 4.4 MMOL/L (3.5-5.1); SODIUM LEVEL 139 MMOL/L (136-145)
[2024-03-19] MEDS: SENOKOT S TAB PO SCH (09:30)
[2024-03-19] MEDS: GABAPENTIN 100 MG CAP PO SCH (09:48)
[2024-03-19] MEDS: ACETAMINOPHEN 500 MG TAB PO SCH (09:48)
[2024-03-19] MEDS: NAPROXEN 250 MG TAB PO SCH (09:49)
[2024-03-19 12:00] VITALS: BP 117/72; TEMP 97.3; O2SAT 97
[2024-03-19 20:00] VITALS: BP 112/67; TEMP 97.3; O2SAT 94
[2024-03-20 03:25] VITALS: BP 127/74; TEMP 97.7; O2SAT 97
[2024-03-20 04:57] LABS: HEMATOCRIT 42.6 % (42.0-52.0); HEMOGLOBIN 14.3 g/dl (13.5-17.5); MEAN CORPUSCULAR HEMOGLOBIN 30.8 pg (27.0-33.0); MEAN CORPUSCULAR HGB CONC 33.6 g/dl (32.0-36.5); MEAN CORPUSCULAR VOLUME 91.6 fl (80.0-96.0); PLATELET COUNT, AUTOMATED 259 10^3/uL (150-450); RED BLOOD COUNT 4.65 10^6/uL (4.30-6.10); WHITE BLOOD COUNT 10.3 10^3/uL (4.0-10.0)
[2024-03-20 05:31] LABS: BLOOD UREA NITROGEN 26 MG/DL (9-23); CALCIUM LEVEL 8.8 MG/DL (8.3-10.6); CARBON DIOXIDE LEVEL 22 MMOL/L (20-31); CHLORIDE LEVEL 108 MMOL/L (98-107); CREATININE FOR GFR 1.01 MG/DL (0.70-1.30); GLOMERULAR FILTRATION RATE > 60.0 (>42); GLUCOSE, FASTING 87 MG/DL (74-106); POTASSIUM SERUM 4.3 MMOL/L (3.5-5.1); SODIUM LEVEL 139 MMOL/L (136-145)
[2024-03-20 05:33] LABS: CPK CREATINE PHOSPHOKINASE 217 U/L (46-171)
[2024-03-20] MEDS: BISACODYL 10MG SUPP PR PRN (10:41)
[2024-03-20] MEDS: MOM 30ML SUSPENSION UDC PO PRN (10:41)
[2024-03-20] MEDS: FLUBLOK(EGGFREE) TRIVAL(24-25) VACCINE PF 0.5ML SYRINGE 18YRS & OLDER IM.IMMUN ONE (10:42)
[2024-03-20 12:00] VITALS: BP 114/65; TEMP 97.5; O2SAT 95
[2024-03-20 16:17] LABS: Methylmalonic Acid 204 nmol/L (69-390)
[2024-03-20 20:04] VITALS: BP 141/85; TEMP 97.3; O2SAT 95
[2024-03-20] MEDS: oxyCODONE 5MG TAB PO PRN (20:52)
[2024-03-21 03:23] VITALS: BP 102/64; TEMP 97.9; O2SAT 94
[2024-03-21 05:30] LABS: HEMATOCRIT 40.9 % (42.0-52.0); HEMOGLOBIN 13.8 g/dl (13.5-17.5); MEAN CORPUSCULAR HEMOGLOBIN 30.9 pg (27.0-33.0); MEAN CORPUSCULAR HGB CONC 33.7 g/dl (32.0-36.5); MEAN CORPUSCULAR VOLUME 91.5 fl (80.0-96.0); PLATELET COUNT, AUTOMATED 262 10^3/uL (150-450); RED BLOOD COUNT 4.47 10^6/uL (4.30-6.10)
[2024-03-21 05:56] LABS: BLOOD UREA NITROGEN 24 MG/DL (9-23); CALCIUM LEVEL 8.7 MG/DL (8.3-10.6); CARBON DIOXIDE LEVEL 28 MMOL/L (20-31); CHLORIDE LEVEL 107 MMOL/L (98-107); CREATININE FOR GFR 0.93 MG/DL (0.70-1.30); GLOMERULAR FILTRATION RATE > 60.0 (>42); GLUCOSE, FASTING 89 MG/DL (74-106); SODIUM LEVEL 139 MMOL/L (136-145)
[2024-03-21 12:00] VITALS: BP 112/67; TEMP 97.5; O2SAT 95
[2024-03-21 20:16] VITALS: BP 119/66; TEMP 97.3; O2SAT 94
[2024-03-21] MEDS: SENOKOT S TAB PO SCH (21:48)
[2024-03-22 04:00] VITALS: BP 120/64; TEMP 97.5; O2SAT 96
[2024-03-22 12:00] VITALS: BP 110/72; TEMP 97.3; O2SAT 94
[2024-03-22 20:00] VITALS: BP 102/71; TEMP 97.9; O2SAT 95
[2024-03-23 04:55] VITALS: BP 116/70; TEMP 97.9; O2SAT 94
[2024-03-23 12:00] VITALS: BP 146/72; TEMP 97.5; O2SAT 97
[2024-03-23 20:00] VITALS: BP 140/63; TEMP 97.5; O2SAT 95
[2024-03-24 04:00] VITALS: BP 139/74; TEMP 97.5; O2SAT 99
[2024-03-25 04:17] VITALS: BP 137/70; TEMP 97.7; O2SAT 96
[2024-03-26 04:00] VITALS: BP 133/79; TEMP 97.3; O2SAT 96
[2024-03-26] MEDS ORDERED: OXYC-517 PO (07:19)
[2024-03-26] MEDS ORDERED: NAPR-849 PO (07:19)
[2024-03-26] MEDS ORDERED: LIDO5TD TD (07:19)
[2024-03-26] MEDS ORDERED: METO1TAB87 PO (07:19)
[2024-03-26] MEDS ORDERED: GABA-1171 PO (07:19)
[2024-03-26] MEDS ORDERED: SENN-52 PO (07:19)
[2024-03-26] MEDS ORDERED: ACET-683 PO (07:19)
[2024-03-26] MEDS ORDERED: ATOR1TAB21 PO (07:19)
[2024-03-26] MEDS ORDERED: DICL1PAT6 TOP (07:19)
[2024-03-26 08:05] VITALS: BP 132/78
== END 2024-03-26 13:03 | DRG 558 ==
LOC: M ED 03:31 → EDBD 03:31 → M ED INP 07:38 → M MSPAV 14:25
PROVIDERS: ADMIT General Practice; ATTEND General Practice
DX: M62.82 Rhabdomyolysis (principal); E87.21 Acute metabolic acidosis; I69.354 Hemiplegia and hemiparesis following cerebral infarction affecting left non-dominant side; E78.5 Hyperlipidemia, unspecified; I10 Essential (primary) hypertension; I16.0 Hypertensive urgency; R29.6 Repeated falls; R26.89 Other abnormalities of gait and mobility; M54.59 Other low back pain; I25.10 Atherosclerotic heart disease of native coronary artery without angina pectoris; I25.2 Old myocardial infarction; Z95.2 Presence of prosthetic heart valve; R51.9 Headache, unspecified; J44.9 Chronic obstructive pulmonary disease, unspecified; R91.1 Solitary pulmonary nodule; M19.90 Unspecified osteoarthritis, unspecified site; K64.8 Other hemorrhoids; F10.10 Alcohol abuse, uncomplicated; L89.152 Pressure ulcer of sacral region, stage 2; L89.611 Pressure ulcer of right heel, stage 1; L89.612 Pressure ulcer of right heel, stage 2; Z91.148 Patient's other noncompliance with medication regimen for other reason; Z79.899 Other long term (current) drug therapy; Z79.82 Long term (current) use of aspirin; Z87.891 Personal history of nicotine dependence

== ENCOUNTER → 2024-08-28 | Outpatient (CLI) | payer MEDICARE, MEDICAID ==
[~2024-08-28] MED LIST changes: +ACET-683 PO; +ATOR1TAB21 PO; +DICL1PAT6 TOP; +GABA-1171 PO; +LIDO5TD TD; +METO1TAB87 PO; +NAPR-849 PO; +OXYC-517 PO; +SENN-52 PO
== END ==
LOC: M RAD 14:19
PROVIDERS: ATTEND Physician Assistant
DX: M79.671 Pain in right foot (principal); R29.898 Other symptoms and signs involving the musculoskeletal system; R93.6 Abnormal findings on diagnostic imaging of limbs; M61.471 Other calcification of muscle, right ankle and foot; M85.872 Other specified disorders of bone density and structure, left ankle and foot; M19.032 Primary osteoarthritis, left wrist